=== PATIENT | female | born 1970 | race Caucasian/White ===

== ENCOUNTER 2019-08-17 22:31 | Emergency (ER) | payer BC ==
[~2019-08-17 22:31] MED LIST: Iopamidol 370 76% 100 ML VIAL ONE
[2019-08-17 22:44] LABS: #Basophils 0.1 thou/uL (0.0-0.2); #Eosinphils 0.1 thou/uL (0.0-0.7); #Lymphocytes 1.9 thou/uL (1.20-3.40); #Monocytes 0.7 thou/uL (0.11-0.59); #Neutrophils 6.2 thou/uL (1.40-6.50); %Eosinophils 1.4 % (0.0-10.0); %Lymphocytes 21.1 % (21.0-51.0); %Monocytes 7.8 % (0.0-10.0); %Neutrophils 68.8 % (42.0-75.0); Hemoglobin 13.1 g/dL (12.0-16.0); Mean Corpuscular HGB CONC 30.9 g/dL (32.0-36.0); Mean Corpuscular Hemoglobin 29.1 pg (27.0-31.0); Mean Corpuscular Volume 94.1 fL (78.0-98.0); Mean Platelet Volume 7.1 fL (7.4-10.4); Platelet Count 319 thou/uL (130-400); RBC Distribution Width 12.7 % (11.5-14.5); Red Blood Cell (RBC) Count 4.49 mill/uL (4.20-5.40)
[2019-08-17 22:59] LABS: BHCG - Serum Negative (NEGATIVE); Pregs Control Background? CLEAR/WHITE (CLR/WHITE); Pregs Control Bar Appear? YES (CONTROL BAR)
[2019-08-17 23:04] LABS: ALT (SGPT) 27 U/L (8-55); AST (SGOT) 22 U/L (5-34); Albumin 4.3 g/dL (3.5-5.0); Alkaline Phosphatase 78 U/L (40-110); Anion Gap 17 mmol/L (10-20); BUN (Urea Nitrogen) 14 mg/dL (7.0-18.7); Bilirubin, Total 0.2 mg/dL (0.2-1.2); Calc. Creatinine Clearance 0 mL/min (70-130); Calcium 9.5 mg/dL (7.8-10.44); Carbon Dioxide 21 mmol/L (22-29); Chloride 107 mmol/L (98-107); Estimated GFR-MDRD 65; Globulin 2.8 g/dL (2.4-3.5); Glucose 106 mg/dL (70-105); Potassium 3.9 mmol/L (3.5-5.1); Protein, Total 7.1 g/dL (6.0-8.3); Sodium 141 mmol/L (136-145)
--- NOTE | 2019-08-17 23:52 | CT ---
CERVICAL SPINE CT: Date: 08/17/2019 COMPARISON: None. HISTORY: Injury, trauma, pain. TECHNIQUE: Axial CT imaging at 2.5 mm intervals through the cervical spine with coronal and sagittal reformatted imaging. FINDINGS: The C1 ring is intact. The occipital condyles, the dens, and the C1-2 articulation appear within norm al limits. There is degenerative change at the atlantoaxial interspace. Craniocervical and cervicotho racic junctions are intact. There is disc space narrowing with degenerative end plate change and oste ophyte formation at C5-6. No displaced fracture or dislocation seen. IMPRESSION: Cervical spine degenerative change. No displaced fracture or dislocation seen. POS: [facility]
--- NOTE | 2019-08-17 23:55 | CT ---
HEAD CT WITHOUT CONTRAST: Date: 08/17/2019 COMPARISON: None. HISTORY: Injury, trauma, pain. TECHNIQUE: Axial CT imaging at 5 mm intervals from vertex through skull base without contrast. Coronal and sagit yin reformatted imaging obtained. FINDINGS: The imaged paranasal sinuses and mastoid air cells are well aerated. No displaced calvarial fracture, intracranial hemorrhage, midline shift, or mass effect. Small posterior fossa arachnoid cyst noted p osteromedially on the right. Incidental note is made of a cavum septum pellucidum. IMPRESSION: Incidental findings as detailed above. No displaced calvarial fracture or intracranial hemorrhage. POS: [facility]
[2019-08-17] MEDS ORDERED: Ketorolac Tromethamine 30 MG/ML VIAL ONE (23:57)
--- NOTE | 2019-08-18 00:28 | CT ---
CT CHEST AND ABDOMEN AND PELVIS AND THORACIC SPINE AND LUMBAR SPINE: Date: 08/17/2019 COMPARISON: None. HISTORY: Injury, trauma, pain. TECHNIQUE: Axial CT imaging at 5 mm intervals from the thoracic inlet through the pubic symphysis with IV contra st. Coronal and sagittal reformatted imaging obtained. FINDINGS: Bilateral breast implants are present. There is no axillary, mediastinal, or hilar lymphadenopathy. N o pleural, pericardial, or mediastinal fluid. The vascular structures of the chest appear patent. The re is a small hiatal hernia. No pneumothorax is noted. No acute pulmonary parenchymal abnormality is seen on either side. The extraspinal osseous structures of the chest demonstrate no acute findings. No free intraperitonea l air or fluid. There is a small hypodensity within the superior posterior aspect of the right lobe of the liver ingrid uring 1.2 cm, too small to characterize. No evidence for a hepatic or splenic laceration. Pancreas, g allbladder, adrenal glands, and kidneys grossly unremarkable. There is no evidence for bowel inflammatory change or obstruction. The vascular structures of the abdomen and pelvis appear unremarkable. No abdominal or pelvic lymphad enopathy. The extraspinal osseous structures of the abdomen/pelvis demonstrate no acute findings. No acute fracture or dislocation is seen involving the thoracic or lumbar spine. IMPRESSION: No post-traumatic abnormalities within the chest, abdomen, pelvis, thoracic spine, or lumbar spine. POS: [facility]
--- NOTE | 2019-08-18 00:35 | RAD ---
3 VIEWS LEFT SHOULDER: Date: 08/17/2019 COMPARISON: None. HISTORY: Injury, trauma, pain. FINDINGS: There is degenerative change of the left acromioclavicular joint. There is no widening of the AC or C C interspace. No displaced fracture or dislocation. IMPRESSION: No acute fracture or dislocation. POS: [facility]
--- NOTE | 2019-08-18 00:36 | RAD ---
FRONTAL AND LATERAL IMAGING OF THE LEFT FEMUR: Date: 08/17/2019 COMPARISON: None. HISTORY: Injury, trauma, pain. FINDINGS: No displaced fracture noted. IMPRESSION: No acute osseous abnormality. POS: [facility]
--- NOTE | 2019-08-18 00:36 | RAD ---
LEFT ELBOW 4 VIEWS: Date: 08/17/2019 COMPARISON: None. HISTORY: Injury, trauma, pain. FINDINGS: No fracture or dislocation. No radiopaque foreign body or subcutaneous gas. IMPRESSION: No acute findings. POS: [facility]
== END 2019-08-18 00:04 | disposition home or self-care (01) ==
LOC: MADERS 22:31
DX: S43.402A Unspecified sprain of left shoulder joint, initial encounter (principal); S53.402A Unspecified sprain of left elbow, initial encounter; S70.02XA Contusion of left hip, initial encounter; E03.9 Hypothyroidism, unspecified; Z79.899 Other long term (current) drug therapy; V43.52XA Car driver injured in collision with other type car in traffic accident, initial encounter
CPT/HCPCS: 70450; 71260; 72125; 74177; 80053; 84703; 85025; 96374; G0390; J1885; Q9967